=== PATIENT | female | born 1990 | race Hispanic/Latino ===

== ENCOUNTER 2017-02-19 16:37 | Emergency (ER) | payer OTHER ==
[2017-02-19 16:54] VITALS: RESP 16; TEMP 99; O2SAT 100
--- NOTE | 2017-02-19 17:23 | ED PDOC ---
HPI: Female Pain Time Seen by Provider: 02/19/17 17:08 Chief Complaint (Nursing): Female Genitourinary Chief Complaint (Provider): Female Genitourinary History Per: Patient History/Exam Limitations: no limitations Onset/Duration Of Symptoms: Hrs (earlier today) Severity: Moderate Associated Symptoms: Nausea. denies: Vomiting, Diarrhea, Urinary Symptoms Additional Complaint(s): 26 year old female 14 weeks presents to the ED with complaints of vaginal bleeding that started earlier today, with some clots. She has an intrauterine confirmed by an ultrasound at 13x weeks. She reports having nausea throughout this , but denies having any abdominal pain, diarrhea, and dysuria. She denies other vaginal discharge. PMD: Sruthi Carty MD Abnormal Vaginal Bleeding: Yes Past Medical History Reviewed: Historical Data, Nursing Documentation, Vital Signs Vital Signs: Last Vital Signs Temp 99.0 F 02/19/17 16:49 Pulse 88 02/19/17 16:49 Resp 16 02/19/17 16:49 BP 139/84 02/19/17 16:49 Pulse Ox 100 02/19/17 16:49 - Medical History PMH: No Chronic Diseases - Family History Family History: States: No Known Family Hx - Allergies Allergies/Adverse Reactions: Allergies Allergy/AdvReac Type Severity Reaction Status Date / Time No Known Allergies Allergy Verified 02/19/17 16:49 Review of Systems ROS Statement: Except As Marked, All Systems Reviewed And Found Negative Constitutional: Negative for: Fever, Chills Cardiovascular: Negative for: Chest Pain, Paroxysmal Noc. Dyspnea, Edema, Light Headedness Respiratory: Negative for: Cough, SOB with Exertion Gastrointestinal: Positive for: Nausea, Vomiting. Negative for: Abdominal Pain , Diarrhea, Constipation Genitourinary Female: Positive for: Vaginal Bleeding. Negative for: Dysuria, Vaginal Discharge (other than the bledding) Skin: Negative for: Rash Neurological: Negative for: Weakness Physical Exam - Reviewed Nursing Documentation Reviewed: Yes Vital Signs Reviewed: Yes - Physical Exam Appears: Positive for: Well, Non-toxic, No Acute Distress Head Exam: Positive for: ATRAUMATIC, NORMOCEPHALIC Skin: Positive for: Normal Color, Warm, Dry Cardiovascular/Chest: Positive for: Regular Rate, Rhythm Respiratory: Positive for: Normal Breath Sounds. Negative for: Respiratory Distress Gastrointestinal/Abdominal: Positive for: Normal Exam, Soft. Negative for: Tenderness, Mass, Guarding, Rebound Back: Negative for: L CVA Tenderness, R CVA Tenderness Extremity: Positive for: Normal ROM Neurologic/Psych: Positive for: Alert, Oriented (3x) - Laboratory Results Result Diagrams: 02/19/17 18:15 02/19/17 18:15 - ECG O2 Sat by Pulse Oximetry: 100 (RA) Pulse Ox Interpretation: Normal Medical Decision Making Medical Decision Makin:08 Initial impression: 26 year old female 14 weeks with abnormal vaginal bleeding. Initial plan: * US transvaginal * type and screen * CMP * CBC * urinalysis * reevaluation UA negative for nitates and leukocytes but shows large blood. 19:00 Will sign out to Dr. Bazan to follow-up labs and ultrasound Scribe Attestation: Documented by Alison Rabago, acting as a scribe for Mellisa Gross MD. Provider Scribe Attestation: All medical record entries made by the Scribe were at my direction and personally dictated by me. I have reviewed the chart and agree that the record accurately reflects my personal performance of the history, physical exam, medical decision making, and the department course for this patient. I have also personally directed, reviewed, and agree with the discharge instructions and disposition. Disposition - Clinical Impression Clinical Impression: Vaginal bleeding in - Disposition Disposition Time: 19:00 Condition: FAIR
[2017-02-19 18:29] LABS: BASO % 0.4 % (0.0-2.0); EOS # 0.1 K/uL (0.0-0.7); EOS % 0.6 % (0.0-4.0); HEMATOCRIT 36.2 % (34.0-47.0); LYMPH # 1.7 K/uL (1.0-4.3); LYMPH % 16.8 % (20.0-40.0); MEAN CELL VOLUME 93.6 fl (81.0-99.0); MEAN CORPUSCULAR HEMOGLOBIN 31.3 pg (27.0-31.0); MEAN CORPUSCULAR HGB CONC 33.5 g/dL (33.0-37.0); MEAN PLATELET VOLUME 8.6 fl (7.2-11.7); MONO # 0.8 K/uL (0.0-0.8); MONO % 7.3 % (0.0-10.0); NEUT # 7.7 K/uL (1.8-7.0); NEUT % 74.9 % (50.0-75.0); RED CELL DISTRIBUTION WIDTH 12.7 % (11.5-14.5); WHITE BLOOD COUNT 10.3 K/uL (4.8-10.8)
[2017-02-19 18:38] LABS: RBC URINE 818 /hpf (0-3); URINE BACTERIA OCC (<OCC); URINE BILIRUBIN NEGATIVE (NEGATIVE); URINE BLOOD LARGE (NEGATIVE); URINE COLOR YELLOW (YELLOW); URINE GLUCOSE (UA) NEG (Normal); URINE KETONE NEGATIVE (NEGATIVE); URINE LEUKOCYTE ESTERASE NEG Leu/uL (Negative); URINE PROTEIN 100 mg/dL (NEGATIVE); URINE UROBILINOGEN 0.2-1.0 mg/dL (0.2-1.0); WBC URINE 19 /hpf (0-5)
[2017-02-19 18:46] LABS: ALB/GLOB RATIO 1.5 (1.0-2.1); ALKALINE PHOSPHATASE 52 U/L (38-126); ALT/SGPT 26 U/L (9-52); AST/SGOT 26 U/L (14-36); BILIRUBIN,TOTAL 0.2 mg/dl (0.2-1.3); BLOOD UREA NITROGEN 10 mg/dl (7-17); CALCIUM 9.2 mg/dL (8.4-10.2); CARBON DIOXIDE 22 mmol/L (22-30); CHLORIDE 105 mmol/L (98-107); GFR AFRICAN-AMERICAN > 60; GLUCOSE,RANDOM 69 mg/dL (65-105); POTASSIUM 4.3 MMOL/L (3.6-5.0); SODIUM 137 mmol/l (132-148); TOTAL PROTEIN 6.8 G/DL (6.3-8.2)
--- NOTE | 2017-02-19 20:41 | US ---
EXAM: US First Trimester, Transabdominal CLINICAL HISTORY: 26 years old, female; Signs and symptoms; Lmp or gestational age (in weeks): 11/14/16; Antepartum complications; Hemorrhage; ; Additional info: Vaginal bleeding, 14 weeks TECHNIQUE: Real-time transabdominal obstetrical ultrasound of the maternal pelvis and a first trimester with image documentation. EXAM DATE/TIME: 02/19/2017 5:20 PM COMPARISON: No relevant prior studies available. FINDINGS: Uterus: Single intrauterine gestation identified. pole is seen. heart motion visualized, at 169 beats per minute. Calculated sonographic gestational age is 13 weeks, 6 days. Estimated delivery date is 08/21/2017. Early placenta appears anterior in location. No evidence of placenta previa. Note that the anatomy and amniotic fluid volume cannot be determined at this early gestational age. Cervix appears long and closed. Right ovary: Could not be visualized. Left ovary: Could not be visualized. Cul de sac: No free fluid. IMPRESSION: 13 week, 6 day intrauterine with heart motion. No acute abnormality identified. Ovaries could not be visualized. See above for remaining findings.
--- NOTE | 2017-02-19 20:49 | ED PDOC ---
- Laboratory Results Result Diagrams: 02/19/17 18:15 02/19/17 18:15 - ECG O2 Sat by Pulse Oximetry: 100 (RA) Pulse Ox Interpretation: Normal Medical Decision Making Medical Decision Making: PT. signed out to me by Dr. Gross. 830PM IMPRESSION: 1. Right L1 transverse process fracture, age-indeterminate. Clinical correlation recommended. 2. Moderate abdominopelvic ascites. 3. Tubular structure originating from the cecum is suspicious for appendix and measures up to 1 cm suggestive of appendicitis versus less likely ileum. No definite evidence of perforation or adjacent abscess. Diffuse small bowel dilatation with air-fluid levels is noted with stool observed within the colon. Findings are suggestive of ileus versus partial small bowel obstruction secondary to appendicitis. Clinical correlation recommended. PT. informed of results, encouraged pelvic rest (no sex, tampons, etc.) and to f /u w/ OB in 1-2 days, return precautions given- worsening bleeding, cramping, fevers, or other concerning symptoms. Disposition - Clinical Impression Clinical Impression: Vaginal bleeding in - POA Present On Arrival: None - Disposition [facility] Disposition: Routine/Home Disposition Time: 20:48 Condition: FAIR Instructions: Threatened Miscarriage (ED)
[2017-02-19 21:07] VITALS: BP 119/75; PULSE 75
== END 2017-02-19 21:07 | disposition home or self-care (01) ==
LOC: H.ER 16:37
DX: O20.0 Threatened abortion (principal); O46.90 Antepartum hemorrhage, unspecified, unspecified trimester; Z3A.14 14 weeks gestation of pregnancy; R18.8 Other ascites

== ENCOUNTER 2017-02-21 10:56 | Emergency (ER) | payer OTHER ==
[2017-02-21 11:14] VITALS: RESP 18; O2SAT 99
[2017-02-21] MEDS ORDERED: Lactated Ringer's 1,000 ML IV SCH (11:45)
--- NOTE | 2017-02-21 11:55 | ED PDOC ---
HPI: General Adult Time Seen by Provider: 02/21/17 11:06 Chief Complaint (Nursing): Female Genitourinary History Per: Patient Additional Complaint(s): Pt. states for the past 4 days she's had LLQ pelvic pain and vaginal bleeding. She was initially seen in [facility] ED at the onset of the bleeding and was subsequently discharged with normal findings. Pt. is currently under the care of ABDIRAHMAN Guardado, next appointment is on Thursday. Further states that she's had previous US for this already which confirmed IUP. Reports no previous pregnancies. Also states since Thursday bleeding has worsened. She has been using 4 fully soaked pads per day. Pt. has hx of anemia but no previous transfusions. Denies fever, dysuria, hematuria, previous ectopic pregnancies, weakness, abdominal pain. Past Medical History Reviewed: Historical Data, Nursing Documentation, Vital Signs Vital Signs: Last Vital Signs Temp 99.5 F 02/21/17 15:50 Pulse 75 02/21/17 15:50 Resp 18 02/21/17 15:50 BP 116/61 02/21/17 15:50 Pulse Ox 99 02/21/17 16:50 - Family History Family History: States: No Known Family Hx - Allergies Allergies/Adverse Reactions: Allergies Allergy/AdvReac Type Severity Reaction Status Date / Time No Known Allergies Allergy Verified 02/21/17 11:13 Review of Systems ROS Statement: Except As Marked, All Systems Reviewed And Found Negative Genitourinary Female: Positive for: Vaginal Bleeding, Pelvic Pain Physical Exam - Physical Exam Appears: Positive for: Well, Non-toxic, No Acute Distress Skin: Positive for: Normal Color, Warm. Negative for: Rash Eye Exam: Positive for: EOMI, Normal appearance, PERRL Gastrointestinal/Abdominal: Positive for: Normal Exam, Soft, Other (no pelvic tenderness). Negative for: Tenderness Back: Positive for: Normal Inspection. Negative for: L CVA Tenderness, R CVA Tenderness Extremity: Positive for: Normal ROM Neurologic/Psych: Positive for: Alert, Oriented - Laboratory Results Result Diagrams: 02/21/17 12:00 02/21/17 12:00 - ECG O2 Sat by Pulse Oximetry: 99 - Progress ED Course And Treament: Labs ordered .TVUS ordered. IV LR bolus ordered. TVUS: 14 week 2 days single live intrauterine fetus in variable presentation, with an ANGELA of 08/20/2017. Anterior placenta without previa, low lying placenta, or abruption. Qualitatively normal amniotic fluid volume. No findings to suggest ovarian torsion. Case d/w Dr. Mcihael who evaluated pt. in ED and agrees with care and states pt. can f/u with Dr. Carty as previously scheduled. Disposition - Clinical Impression Clinical Impression: Threatened miscarriage - Patient ED Disposition Is Patient to be Admitted: No - Disposition Referrals: Sruthi Carty MD [Staff Provider] - Disposition: Routine/Home Disposition Time: 16:49 Condition: STABLE Additional Instructions: Follow up with Dr. Carty on Thursday as previously scheduled without fail. Instructions: Threatened Miscarriage (ED)
[2017-02-21 12:33] LABS: BASO % 0.2 % (0.0-2.0); EOS % 0.3 % (0.0-4.0); HEMATOCRIT 38.8 % (34.0-47.0); LYMPH # 1.3 K/uL (1.0-4.3); LYMPH % 12.5 % (20.0-40.0); MEAN CELL VOLUME 92.3 fl (81.0-99.0); MEAN CORPUSCULAR HEMOGLOBIN 31.5 pg (27.0-31.0); MEAN CORPUSCULAR HGB CONC 34.1 g/dL (33.0-37.0); MEAN PLATELET VOLUME 8.6 fl (7.2-11.7); MONO # 0.6 K/uL (0.0-0.8); MONO % 5.4 % (0.0-10.0); NEUT # 8.7 K/uL (1.8-7.0); NEUT % 81.6 % (50.0-75.0); RED CELL DISTRIBUTION WIDTH 12.8 % (11.5-14.5); WHITE BLOOD COUNT 10.6 K/uL (4.8-10.8)
[2017-02-21 12:41] LABS: ALB/GLOB RATIO 1.4 (1.0-2.1); ALKALINE PHOSPHATASE 57 U/L (38-126); ALT/SGPT 26 U/L (9-52); AST/SGOT 27 U/L (14-36); BILIRUBIN,TOTAL 0.2 mg/dl (0.2-1.3); BLOOD UREA NITROGEN 7 mg/dl (7-17); CALCIUM 9.6 mg/dL (8.4-10.2); CARBON DIOXIDE 22 mmol/L (22-30); CHLORIDE 106 mmol/L (98-107); GFR AFRICAN-AMERICAN > 60; GLUCOSE,RANDOM 75 mg/dL (65-105); POTASSIUM 4.2 MMOL/L (3.6-5.0); SODIUM 137 mmol/l (132-148)
[2017-02-21 13:07] LABS: URINE COLOR YELLOW (YELLOW)
[2017-02-21 13:08] LABS: URINE BILIRUBIN NEGATIVE (NEGATIVE); URINE BLOOD LARGE (NEGATIVE); URINE GLUCOSE (UA) NEGATIVE (Normal); URINE KETONE NEGATIVE (NEGATIVE); URINE PROTEIN NEGATIVE (NEGATIVE); URINE UROBILINOGEN 0.2 mg/dL (0.2-1.0)
[2017-02-21 13:09] LABS: RBC URINE 13 /hpf (0-3); URINE BACTERIA FEW (<OCC); URINE LEUKOCYTE ESTERASE NEGATIVE Leu/uL (Negative); WBC URINE 8 /hpf (0-5)
[2017-02-21 13:19] LABS: PARTIAL THROMBOPLASTIN TIME 25.6 SECONDS (23.3-32.5)
[2017-02-21 15:51] VITALS: BP 116/61; PULSE 75; TEMP 99.5
--- NOTE | 2017-02-21 18:04 | CP.PCM.CON ---
History of Present Illness - History of Present Illness History of Present Illness: 26yo LMP 11/14 at 14.1wks by LMP and 13wk us presents with c/o continued light bleeding since prior presentation 2days ago. She states when she awakened today she had an episode of heavy bleeding which has since been saddle lining stitcher in flowShe has had intermittent cramping and denies pain or cramps at present. US today shows: +FHR- 171, Cerv Length: 4.2cm, placenta without evidence of abruption, previa or low lying. She has used 1 pad since the bleeding this morning which has scant amount of brown blood. Review of Systems - Constitutional Constitutional: Chills, Excessive Sweating, Malaise - Cardiovascular Cardiovascular: Chest Pain - Respiratory Respiratory: Dyspnea on Exertion, Pain on Inspiration - Gastrointestinal Gastrointestinal: absent: Abdominal Pain - Genitourinary Genitourinary: absent: Change in Urinary Stream Past Patient History - Past Social History Smoking Status: Never Smoked - PSYCHIATRIC Hx Substance Use: No Meds Allergies/Adverse Reactions: Allergies Allergy/AdvReac Type Severity Reaction Status Date / Time No Known Allergies Allergy Verified 02/21/17 11:13 Physical Exam - Constitutional Appears: Well - Head Exam Head Exam: ATRAUMATIC, NORMOCEPHALIC - Respiratory Exam Respiratory Exam: NORMAL BREATHING PATTERN - Cardiovascular Exam Cardiovascular Exam: REGULAR RHYTHM - GI/Abdominal Exam GI & Abdominal Exam: Normal Bowel Sounds, Soft. absent: Diminished Bowel Sounds , Distended, Firm, Guarding, Rebound, Rigid, Tenderness - Exam Speculum exam: absent: Laceration (+dark blood in vaginal vault. scant dark blood per cervical os; cvx: cl/thick), NORMAL SPECULUM EXAM Results - Vital Signs Recent Vital Signs: Last Vital Signs Temp 99.5 F 02/21/17 15:50 Pulse 75 02/21/17 15:50 Resp 18 02/21/17 15:50 BP 116/61 02/21/17 15:50 Pulse Ox 99 02/21/17 16:58 - Labs Result Diagrams: 02/21/17 12:00 02/21/17 12:00 Labs: Laboratory Results - last 24 hr 02/21/17 02/21/17 02/21/17 12:00 12:00 12:00 WBC 10.6 RBC 4.21 Hgb 13.2 Hct 38.8 MCV 92.3 MCH 31.5 H MCHC 34.1 RDW 12.8 Plt Count 213 MPV 8.6 Neut % (Auto) 81.6 H Lymph % (Auto) 12.5 L Hudson % (Auto) 5.4 Eos % (Auto) 0.3 Baso % (Auto) 0.2 Neut # 8.7 H Lymph # 1.3 Hudson # 0.6 Eos # 0.0 Baso # 0.0 PT 9.4 L INR 0.90 L APTT 25.6 Sodium 137 Potassium 4.2 Chloride 106 Carbon Dioxide 22 Anion Gap 13 BUN 7 Creatinine 0.5 L Est GFR ( Amer) > 60 Est GFR (Non-Af Amer) > 60 Random Glucose 75 Calcium 9.6 Total Bilirubin 0.2 AST 27 ALT 26 Alkaline Phosphatase 57 Total Protein 7.0 Albumin 4.1 Globulin 2.9 Albumin/Globulin Ratio 1.4 Beta HCG, Quant 592494.00 Urine Color Urine Clarity Urine pH Ur Specific [place] Urine Protein Urine Glucose (UA) Urine Ketones Urine Blood Urine Nitrate Urine Bilirubin Urine Urobilinogen Ur Leukocyte Esterase Urine RBC (Auto) Urine Microscopic WBC Ur Squamous Epith Cells Amorphous Sediment Urine Bacteria Blood Type Antibody Screen BBK History Checked 02/21/17 02/21/17 12:00 12:00 WBC RBC Hgb Hct MCV MCH MCHC RDW Plt Count MPV Neut % (Auto) Lymph % (Auto) Hudson % (Auto) Eos % (Auto) Baso % (Auto) Neut # Lymph # Hudson # Eos # Baso # PT INR APTT Sodium Potassium Chloride Carbon Dioxide Anion Gap BUN Creatinine Est GFR ( Amer) Est GFR (Non-Af Amer) Random Glucose Calcium Total Bilirubin AST ALT Alkaline Phosphatase Total Protein Albumin Globulin Albumin/Globulin Ratio Beta HCG, Quant Urine Color Yellow Urine Clarity Cloudy Urine pH 7.0 Ur Specific [place] 1.017 Urine Protein Negative Urine Glucose (UA) Negative Urine Ketones Negative Urine Blood Large Urine Nitrate Negative Urine Bilirubin Negative Urine Urobilinogen 0.2 Ur Leukocyte Esterase Negative Urine RBC (Auto) 13 H Urine Microscopic WBC 8 H Ur Squamous Epith Cells 34 H Amorphous Sediment Moderate H Urine Bacteria Few H Blood Type O POSITIVE Antibody Screen Negative BBK History Checked Patient has bt Assessment & Plan - Assessment and Plan (Free Text) Assessment: I: Threatened with nl f/u P: f/u with dr smith as scheduled this wk in 4days return to Ed with onset of heavy bleeding or abd pain. pelvic rest and bed rest.
--- NOTE | 2017-02-23 08:07 | US ---
Pelvic ultrasound History: . Vaginal bleeding and left lower quadrant pelvic pain. Comparison: Comparison is made to prior ultrasound from 02/19/2017. Technique: Transabdominal ultrasonography images of the pelvis. Findings: Single intrauterine identified. The placenta is anterior. The placenta is not seen to be overlying the area cervical os. The presentation appears to be variable. There is motion identified according to the technologist note. cardiac motion identified with heart rate: 171 beats per minute. Biparietal diameter: 2.6 centimeter. Abdominal circumference: 7.9 centimeter. Head circumference: 9.6 centimeter. Femur length: 1.4 centimeter. Mean ultrasound age: 14 weeks 2 days. Both ovaries appear unremarkable. (Please note that this is not complete anatomical survey). Cervix measures approximately 4.26 centimeters. Minimal fluid seen within the cervix. Impression: Single live intrauterine gestational sac identified. Mean ultrasound age: 14 weeks 2 days. Other findings as above. Please note that this report is in general agreement with the preliminary report provided by [facility].
== END 2017-02-21 17:08 | disposition home or self-care (01) ==
LOC: H.ER 10:56
DX: O20.0 Threatened abortion (principal); O20.9 Hemorrhage in early pregnancy, unspecified; Z3A.14 14 weeks gestation of pregnancy

== ENCOUNTER 2017-06-16 11:52 | Emergency (ER) | payer BC, OTHER ==
[2017-06-16 12:15] VITALS: BMI 24.5
[2017-06-16 13:03] LABS: BASO % 0.4 % (0.0-2.0); EOS % 0.5 % (0.0-4.0); HEMATOCRIT 29.9 % (34.0-47.0); LYMPH # 1.4 K/uL (1.0-4.3); LYMPH % 18.6 % (20.0-40.0); MEAN CELL VOLUME 90.8 fl (81.0-99.0); MEAN CORPUSCULAR HEMOGLOBIN 30.6 pg (27.0-31.0); MEAN CORPUSCULAR HGB CONC 33.8 g/dL (33.0-37.0); MEAN PLATELET VOLUME 8.4 fl (7.2-11.7); MONO # 0.7 K/uL (0.0-0.8); MONO % 8.8 % (0.0-10.0); NEUT # 5.3 K/uL (1.8-7.0); NEUT % 71.7 % (50.0-75.0); RED CELL DISTRIBUTION WIDTH 12.2 % (11.5-14.5); WHITE BLOOD COUNT 7.4 K/uL (4.8-10.8)
[2017-06-16 13:15] LABS: ALB/GLOB RATIO 1.2 (1.0-2.1); ALKALINE PHOSPHATASE 149 U/L (38-126); ALT/SGPT 56 U/L (9-52); AST/SGOT 37 U/L (14-36); BILIRUBIN,TOTAL 0.3 mg/dl (0.2-1.3); BLOOD UREA NITROGEN 12 mg/dl (7-17); CALCIUM 9.1 mg/dL (8.4-10.2); CARBON DIOXIDE 22 mmol/L (22-30); CHLORIDE 106 mmol/L (98-107); GFR AFRICAN-AMERICAN > 60; GLUCOSE,RANDOM 69 mg/dL (65-105); POTASSIUM 4.3 MMOL/L (3.6-5.0); SODIUM 136 mmol/l (132-148); TOTAL PROTEIN 6.1 G/DL (6.3-8.2); URIC ACID 5.1 mg/Dl (2.2-7.5)
[2017-06-16 14:06] LABS: RBC URINE 15 /hpf (0-3); URINE BILIRUBIN NEGATIVE (NEGATIVE); URINE BLOOD SMALL (NEGATIVE); URINE COLOR YELLOW (YELLOW); URINE GLUCOSE (UA) NEG (Normal); URINE KETONE NEGATIVE (NEGATIVE); URINE LEUKOCYTE ESTERASE NEG Leu/uL (Negative); URINE PROTEIN 30 mg/dL (NEGATIVE); URINE UROBILINOGEN 0.2-1.0 mg/dL (0.2-1.0); WBC URINE 3 /hpf (0-5)
[2017-06-16 20:59] VITALS: BP 124/74; PULSE 75; RESP 18; TEMP 98.3; O2SAT 99
--- NOTE | 2017-06-16 21:02 | OBHP ---
Datetime: 06/16/2017 12:00 IP Adm Impression: , intrauterine IP Admit Plan: Observation/Evaluation Admit Comment, IP Provider: CC: elevated blood pressure HPI: 27 yo at 30.4 GA by lmp + FM; -: VB, CTX, ROM Last US: 06/14/2017 Last visit: 1 week; Jo shares of elevated BP: yesterday: 139/89; This AM: 155/99 and reported findings to Dr. Lenny simms's office; She was instructed to present to the SEE. + for slight nausea; She denies MONTES, Blurr ed vision, epigastric pain, vomiting, Chest pain, shortness of breath. She shares of experiencing vag baljeet bleed at 14 weeks of this ; 04/20/2017: Circumvallate placenta; small chorionic plate. past obhx: n/a past gyne: Std: denies; Pap 12/2016: negative pmhx: 06/2016: anemia secondary to exercise induce rhabdomyolysis Tx iron; 2013: vagovagal episod e; 2008: nephrolithiasis; 1 month: R hand numbness; Acid Reflux past surgical: none soc hx: Denies smoking, illicit drugs or alcohol use during ; History of social alcohol meds: Nexium Allergies: NKDA Vitals: 137/79 83 100% PE: General: pleasant, in no acute distress HEENT: normocephalic, PERRLA; AAOx3 Heart: no murmurs, regular rate and rhythm, S1, S2 normal. Lungs: clear to auscultation bilaterally, no wheezing Abdomen: gravid; nontender CVA: negative Lower extremities: negative for pitting edema Monitor: Moderate variability; Accel: 15x15; No Decels; FHR: 150 Assessment: 27 yo IUP at 30.4 wks with no obstetric history observed for elevated blood pressure Plan: PIV labs: CBC, CMP, Uric acid, LDH, LDH; Pt has already begun 24 hour urine collection Pt also managing blood glucose via fingerstick due to failed 3 hour blood glucose challenge. Preeclampsia workup WNL, all copies faxed over to [employer] [facility] Patient given ER precautions Stable to DC home d/w Dr Karo guillen, pgy1 OB Hospitalist note: This pt was seen and examined by me. Agree with above note. MAHNDO Pelvic Type - PN: Adequate Extremities - PN: Normal Abdomen - PN: Normal Back - PN: Normal Breast - PN: Normal Lungs - PN: Normal Heart - PN: Normal Thyroid - PN: Not Done Neurologic - PN: Normal HEENT - PN: Normal General - PN: Normal FHR - Baseline A Provider: 150 Comments, ACOG Physical Exam: ROS: General: no weakness; no fatigue HEENT: no MONTES; no visual dist CV: no palpitations; no no CP GI: no N/V no diarhea : no F/U/D MS: No joint pain IP Hx Assessment: The History has been Reviewed and is Current Vital Signs Provider: Reviewed; Within Normal Limits IP Chief Complaint: Signs/Symptoms Gestational HTN NICHD Variability Prov Fetus A: Moderate 6-25bpm NICHD Accel Fetus A IP Provider: 15X15 FHR Category Provider Fetus A: Category I NICHD Decel Fetus A IP Provider: None Genitourinary Exam: Not Done DTRs - PN: Not Done
--- NOTE | 2017-06-16 21:03 | OBDCSUM ---
Datetime: 06/16/2017 13:33 Discharged to, Provider: Home Follow up at, Provider: Dr Hansen Disch Instr Activity: Normal activity Disch Instr Diet: Regular Discharge Time: 06/16/2017 13:37 Follow up in weeks, Provider: at 10:00 am Disch Referrals: None Disch Activity Restrictions: No sexual activity Discharge Comment, Provider: -Patient to commence 24 hr urine tomorrow AM -all results of PIH workup copied, faxed to Dr. Hansen' office and provided to patient - ER precautions discussed - follow up with Dr Hansen on - d/w Dr Karo Bonilla MD OB Hospitalist note: This pt was seen and examined by me. Agree with above note. MAHNDO Discharge Diagnosis Prov Other: elevated BP
== END 2017-06-16 13:40 | disposition home or self-care (01) ==
LOC: H.EROB2 11:52 → H.EROB 11:54 → H.EROB2 13:40
DX: O13.3 Gestational [pregnancy-induced] hypertension without significant proteinuria, third trimester (principal); Z3A.30 30 weeks gestation of pregnancy

== ENCOUNTER 2017-07-06 18:45 | Inpatient (IN) | payer BC ==
[2017-07-06 19:38] VITALS: BMI 25.7
[2017-07-06] MEDS ORDERED: Magnesium Sulfate 4 gm/100 ml 4 GM/100 ML BAG IV ONE (19:47)
[2017-07-06] MEDS ORDERED: Magnesium Sul 40GM/1L SW 40 GM/1,000 ML ML IV ONE ×2 (19:47→20:30)
[2017-07-06] MEDS ORDERED: Betamethasone Soluspan 30 mg/5mL Inj Susp IM ONE (20:00)
[2017-07-06] MEDS: Lactated Ringer's 1,000 ML IV SCH (21:00)
[2017-07-06 21:09] LABS: ALKALINE PHOSPHATASE 163 U/L (38-126); ALT/SGPT 36 U/L (9-52); AST/SGOT 31 U/L (14-36); BILIRUBIN,TOTAL < 0.1 mg/dl (0.2-1.3); BLOOD UREA NITROGEN 13 mg/dl (7-17); CALCIUM 7.6 mg/dL (8.4-10.2); CARBON DIOXIDE 21 mmol/L (22-30); CHLORIDE 113 mmol/L (98-107); GFR AFRICAN-AMERICAN > 60; GLUCOSE,RANDOM 62 mg/dL (65-105); MAGNESIUM 1.8 MG/DL (1.6-2.3); POTASSIUM 3.5 MMOL/L (3.6-5.0); SODIUM 137 mmol/l (132-148)
[2017-07-06 21:41] LABS: RBC URINE 2 /hpf (0-3); URINE BACTERIA RARE (<OCC); URINE BILIRUBIN NEGATIVE (NEGATIVE); URINE BLOOD NEGATIVE (NEGATIVE); URINE COLOR YELLOW (YELLOW); URINE GLUCOSE (UA) NEG (Normal); URINE KETONE NEGATIVE (NEGATIVE); URINE LEUKOCYTE ESTERASE NEG Leu/uL (Negative); URINE PROTEIN >=500 mg/dL (NEGATIVE); URINE UROBILINOGEN 0.2-1.0 mg/dL (0.2-1.0); WBC URINE 5 /hpf (0-5)
--- NOTE | 2017-07-06 21:44 | OBADHP ---
Datetime: 07/06/2017 21:25 Admit Comment, IP Provider: Patient is a @ 33.3 wks admitted for pre-eclamptic evaluation. Binta ent has a history of circumvallante placenta, IUGR. Patient at 31 wks was found in office to have BP [id number], was asymptomatic, had pre-eclamptic labs including a 24 hr urine which was negative. Binta ent in office today had BP of 150/100, denies MONTES, blurred vision, N/V, was sent to [facility] evalu ation. Initial BPs were 160s-170s/100s, patient continues to denies MONTES, blurred vision, N/V. No vag b leeding, no leaking, +FM, occasional contractions. Growth on 07/01 showed EFW= 1600gm, 17%, vertex. VE=deferred HHB=446 Cat-I A/P 1. Plan of care discussed with GABE and Dr. Hansen. Will admit patient for repreat Pre-eclamptic workup, Will draw CBC, CMP, LDH. Patient initially denies any severe signs, because BP initially is over 160/100 will start MgSO4 for seizure prophylaxis. 2. Labetalol 200mg PO initially given immediately and then Q8hrs and BPs taken every 10-15 mins. I f BP not under 140s/90s, will consider giving IV Labetalol 3. Will collect 24 urine protein and strict I's/Os. 4. CEFM and TOCO. Re-evalaute as needed Pelvic Type - PN: Adequate Extremities - PN: Normal Abdomen - PN: Normal Back - PN: Normal Breast - PN: Normal Lungs - PN: Normal Heart - PN: Normal Thyroid - PN: Normal Neurologic - PN: Normal HEENT - PN: Normal General - PN: Normal FHR - Baseline A Provider: 140 Contraction Comments Provider: occasional Vital Signs Provider: Reviewed IP Chief Complaint: Signs/Symptoms Gestational HTN NICHD Variability Prov Fetus A: Moderate 6-25bpm NICHD Accel Fetus A IP Provider: [id number] NICHD Decel Fetus A IP Provider: None Genitourinary Exam: Normal DTRs - PN: Normal EGA AdmitDate IP: 33.3 IP Admit Plan: Admit to unit; Observation/Evaluation Datetime: 06/16/2017 12:00 Comments, ACOG Physical Exam: ROS: General: no weakness; no fatigue HEENT: no MONTES; no visual dist CV: no palpitations; no no CP GI: no N/V no diarhea : no F/U/D MS: No joint pain IP Hx Assessment: The History has been Reviewed and is Current FHR Category Provider Fetus A: Category I IP Adm Impression: , intrauterine
[2017-07-07 08:05] LABS: LYMPH # 0.9 K/uL (1.0-4.3); LYMPH % 9.5 % (20.0-40.0); MEAN CELL VOLUME 89.3 fl (81.0-99.0); MEAN CORPUSCULAR HEMOGLOBIN 30.3 pg (27.0-31.0); MEAN PLATELET VOLUME 8.9 fl (7.2-11.7); MONO # 0.1 K/uL (0.0-0.8); MONO % 1.3 % (0.0-10.0); NEUT # 8.9 K/uL (1.8-7.0); NEUT % 89.2 % (50.0-75.0); NRBC % 0.1 % (0.0-0.0); PLATELET COUNT 186 K/uL (130-400); RED CELL DISTRIBUTION WIDTH 12.7 % (11.5-14.5)
[2017-07-07] MEDS: Lactated Ringer's 1,000 ML IV SCH ×2 (08:42→16:00)
[2017-07-07] MEDS ORDERED: Magnesium Sul 40GM/1L SW 40 GM/1,000 ML ML IV ONE (09:06)
[2017-07-07 09:35] LABS: NEUTROPHIL 89 % (42-75); TOTAL CELLS COUNTED 100
[2017-07-07] MEDS ORDERED: Betamethasone Soluspan 30 mg/5mL Inj Susp IM ONE (20:45)
--- NOTE | 2017-07-07 23:06 | OBPN ---
Datetime: 07/07/2017 23:04 IP Progress Note Comment: Patient's 24-hour urine results reported approximately 5800 mg protein in 24-hour urine. Patient currently with stable blood pressures and without complaints. Discussed plan w dieter BERNAL. Plan to keep patient for observation and we will recheck labs and recheck 24-hour urine in 2 days. Both maternal well-being and well-being reassuring at this time. I discussed plan with t rupal patient and all patient questions answered. Datetime: 07/06/2017 21:25 Contraction Comments Provider: occasional FHR - Baseline A Provider: 140 Vital Signs Provider: Reviewed NICHD Accel Fetus A IP Provider: [id number] NICHD Variability Prov Fetus A: Moderate 6-25bpm NICHD Decel Fetus A IP Provider: None Datetime: 06/16/2017 12:00 FHR Category Provider Fetus A: Category I
[2017-07-08 08:38] LABS: CREATININE, 24 HOUR URINE 1.43 g/24 h (0.63-2.50); CREATININE, URINE 1.59 g/L
--- NOTE | 2017-07-08 11:21 | US ---
PROCEDURE: biophysical profile HISTORY: 33+4 wks with preeclampsis COMPARISON: 02/21/2017 TECHNIQUE: Standard protocol for this study/examination. FINDINGS: FINDINGS: Biophysical profile score 8/8 Based on the followin. breathing movements: 2/2 2. Gross body movement: 2/2 3. tone: 2/2 4. Qualitative amniotic fluid index: 2/2 Amniotic fluid index 15.9. Calculated cardiac rate 156 beats per minute Cephalic presentation. IMPRESSION: Biophysical profile score 8/8
--- NOTE | 2017-07-08 12:05 | OBPN ---
Datetime: 07/08/2017 11:41 IP Progress Impression Other: Pre-eclampsia IP Progress Plan: Continue present management Membranes, Provider: Intact FHR - Baseline A Provider: 120's IP Progress Note Comment: 27 yo G1 at 33+5 wks w/ pre-eclampsia, reports that she has nausea (throug hout ), denies MONTES, visual changes, abdominal pain, LOF, VB, reports FM. PE: BP 126/82, 143/93, 152/95, 150/89 Labetolol ordered to be given PRN , 200mg q 8 if BP persisting >150/100 Pt to have labs and 24 urine repeated tomorrow Will follow sx and BPs, BPP 8/8 today NICHD Accel Fetus A IP Provider: [id number] FHR Category Provider Fetus A: Category I NICHD Variability Prov Fetus A: Moderate 6-25bpm NICHD Decel Fetus A IP Provider: None; Variable
[2017-07-09 11:54] LABS: BASO % 0.1 % (0.0-2.0); HEMATOCRIT 26.3 % (34.0-47.0); LYMPH # 1.7 K/uL (1.0-4.3); LYMPH % 20.8 % (20.0-40.0); MEAN CELL VOLUME 89.2 fl (81.0-99.0); MEAN CORPUSCULAR HEMOGLOBIN 30.2 pg (27.0-31.0); MEAN CORPUSCULAR HGB CONC 33.9 g/dL (33.0-37.0); MEAN PLATELET VOLUME 8.6 fl (7.2-11.7); MONO # 0.9 K/uL (0.0-0.8); NEUT # 5.4 K/uL (1.8-7.0); NEUT % 68.1 % (50.0-75.0); NRBC % 0.2 % (0.0-0.0); RED CELL DISTRIBUTION WIDTH 12.7 % (11.5-14.5)
[2017-07-09 12:10] LABS: ALKALINE PHOSPHATASE 152 U/L (38-126); ALT/SGPT 31 U/L (9-52); AST/SGOT 27 U/L (14-36); BILIRUBIN,TOTAL 0.1 mg/dl (0.2-1.3); CALCIUM 7.6 mg/dL (8.4-10.2); CARBON DIOXIDE 23 mmol/L (22-30); CHLORIDE 108 mmol/L (98-107); GFR AFRICAN-AMERICAN > 60; GLUCOSE,RANDOM 87 mg/dL (65-105); POTASSIUM 4.4 MMOL/L (3.6-5.0); SODIUM 136 mmol/l (132-148); TOTAL PROTEIN 5.1 G/DL (6.3-8.2)
[2017-07-09 13:07] LABS: BLOOD UREA NITROGEN 21 mg/dl (7-17)
[2017-07-09] MEDS ORDERED: Enoxaparin 40 mg Syringe SC SCH (16:30)
[2017-07-09] MEDS ORDERED: Labetalol 5 mg/ml Inj 20ML IVP ONE (20:00)
[2017-07-10] MEDS ORDERED: Labetalol 5 mg/ml Inj 20ML IVP ONE (03:45)
--- NOTE | 2017-07-10 08:33 | OBPN ---
Datetime: 07/09/2017 08:26 IP Progress Impression: Gest. HTN/PreEclampsia/Eclampsia IP Progress Plan: Continue present management IP Progress Note Comment: s: Patient denies headaches blurred vision condition midepigastric or righ t upper quadrant pain. o: Lower extremity reflexes +3 out of 4 Positive nonpitting pedal edema Impression: Preeclampsia asymptomatic Status post betamethasone 2 34 week gestation Plan Repeat serological evaluation and 24-hour urine Addendum: Repeat low blood work within normal limits with the exception of elevated creatinine. Results disc ussed with Dr. aguirre bed was stated to delay 24-hour urine collection until Thursday stating that the to do it today would be too close to the prior 24-hour urine and would not add significant informati on. That can spit also stated elevated creatinine secondary to proteinuria. Recommended starting Love nox. Rx of Lovenox 40 was ordered. Vital Signs Provider: Reviewed NICHD Accel Fetus A IP Provider: 15X15 FHR Category Provider Fetus A: Category I
--- NOTE | 2017-07-10 08:52 | OBPN ---
Datetime: 07/09/2017 21:31 IP Progress Note Comment: Blood pressures further increased today. Subjective: Patient continues to deny headaches blurred vision spots in her vision right upper jovan drant pain midepigastric pain. Oh: Lower extremity posterior to 4, positive pitting pedal edema, no clonus Impression: Preeclampsia Further increase of blood pressures patient continues to remain asymptomatic Plan: DC Lovenox Patient discussed with Dr. Hernandez will continue to manage expectantly.
[2017-07-10] MEDS ORDERED: Labetalol 5 mg/ml Inj 20ML IVP STA (20:15)
[2017-07-10] MEDS ORDERED: Magnesium Sulfate 4 gm/100 ml 4 GM/100 ML BAG IVPB ONE (20:25)
[2017-07-10] MEDS ORDERED: Magnesium Sul 40GM/1L SW 40 GM/1,000 ML ML IV ONE ×2 (20:28→20:39)
[2017-07-11] MEDS: Lactated Ringer's 1,000 ML IV SCH (12:45)
[2017-07-11 15:36] LABS: BASO % 0.3 % (0.0-2.0); EOS # 0.1 K/uL (0.0-0.7); EOS % 0.6 % (0.0-4.0); HEMATOCRIT 28.1 % (34.0-47.0); LYMPH % 22.4 % (20.0-40.0); MEAN CELL VOLUME 90.9 fl (81.0-99.0); MEAN PLATELET VOLUME 9.3 fl (7.2-11.7); MONO # 0.7 K/uL (0.0-0.8); NEUT # 6.2 K/uL (1.8-7.0); NEUT % 68.7 % (50.0-75.0); NRBC % 0.1 % (0.0-0.0); RED CELL DISTRIBUTION WIDTH 12.8 % (11.5-14.5)
[2017-07-11 15:43] LABS: ALKALINE PHOSPHATASE 168 U/L (38-126); ALT/SGPT 24 U/L (9-52); AST/SGOT 27 U/L (14-36); BILIRUBIN,TOTAL 0.1 mg/dl (0.2-1.3); BLOOD UREA NITROGEN 19 mg/dl (7-17); CALCIUM 7.1 mg/dL (8.4-10.2); CARBON DIOXIDE 18 mmol/L (22-30); CHLORIDE 108 mmol/L (98-107); GFR AFRICAN-AMERICAN > 60; GLUCOSE,RANDOM 74 mg/dL (65-105); POTASSIUM 4.8 MMOL/L (3.6-5.0); SODIUM 133 mmol/l (132-148); TOTAL PROTEIN 5.1 G/DL (6.3-8.2); URIC ACID 6.3 mg/Dl (2.2-7.5)
--- NOTE | 2017-07-11 22:37 | OBPN ---
Datetime: 07/11/2017 09:30 IP Progress Note Comment: Patient comfortable at this time without complaints. Patient with episode of headaches and nausea consistent with her history of migraines. She reports that this has subsided. Patient denies any changes in vision or abdominal pain. Patient denies any contractions, vaginal ble eding, leakage of fluids. Patient reports good movement. Vital signs stable, afebrile Abdomen soft, nontender, nondistended, gravid, no fundal tenderness No deep Tenderness bilaterally Assessment: 34 weeks and 1 day gestational age, preeclampsia. Blood pressures were controlled at this time. Th e infant well-being reassuring at this time. Plan: Repeat 24-hour urine collection completed this evening Continue by mouth labetalol to control blood pressure Magnesium sulfate discontinued well-controlled blood pressures and length magnesium sulfate use Continuous monitoring at this time Plan discussed with patient and all patient questions answered.
[2017-07-12] MEDS ORDERED: Labetalol 5 mg/ml Inj 20ML IVP ONE (03:56)
[2017-07-12] MEDS ORDERED: Magnesium Sulfate 2 GM in Sodium Chloride 0.9% 100 ML IVPB ONE (04:03)
[2017-07-12] MEDS ORDERED: Magnesium Sul 40GM/1L SW 40 GM/1,000 ML ML IV ONE ×3 (04:04→19:00)
[2017-07-12] MEDS: Lactated Ringer's 1,000 ML IV SCH ×2 (04:16→18:36)
[2017-07-12] MEDS ORDERED: Labetalol 5 mg/ml Inj 20ML IVP STA ×2 (04:17→04:39)
--- NOTE | 2017-07-12 05:27 | OBPN ---
Datetime: 07/12/2017 05:20 IP Progress Note Comment: Pt with BPs 160s-170s/100-110. Pt given Labetalol 10mg slow IVP, no crockett e after 15 minutes. Pt given Labetalol 20mg slow IVP. BPs lowered to 140s/90s. MgSO4 started. FHT reassuring at this time. 24hr urine in lab and results pending. Continue close observation.
[2017-07-12] MEDS ORDERED: ceFAZolin 1 GM in Sodium Chloride 0.9% 100 ML IVPB ONE (07:05)
[2017-07-12] MEDS ORDERED: Oxytocin 30 units/LR 500ML 30 U/500 ML BAG IV ONE (07:07)
[2017-07-12 07:24] LABS: HEMATOCRIT 27.7 % (34.0-47.0); MEAN CELL VOLUME 89.6 fl (81.0-99.0); MEAN CORPUSCULAR HEMOGLOBIN 29.5 pg (27.0-31.0); WHITE BLOOD COUNT 8.9 K/uL (4.8-10.8)
--- NOTE | 2017-07-12 07:28 | OBPN ---
Datetime: 07/12/2017 07:24 IP Progress Impression: Gest. HTN/PreEclampsia/Eclampsia IP Informed Consent Obtain: Section Delivery; Risks, Benefits and Alternatives Discussed IP Progress Plan: Deliver- Section IP Progress Note Comment: Persistent blood pressures of 150s to 160s over 90s to 100s despite multip le doses of IV antihypertensives. Patient's 24-hour urine collection resulted reported greater than 1 4,000 mg protein. I called and discussed case with [facility]. MFM recommended delivery via . I dis cussed plan with patient and all patient questions answered. Patient consented for delivery . I discussed with patient the risks of surgery including risks of bleeding, infection, organ damage. Anesthesia notified. Neonatology notified.
[2017-07-12] MEDS ORDERED: Phenylephrine 10 mg/ml Inj ONE (07:44)
--- NOTE | 2017-07-12 09:13 | OBDS ---
DELIVERY PERSONNEL Delivery Doctor: Esdras Nieves MD Design Cell Engineer: Nhung Valencia RN MATERNAL INFORMATION Delivery Anesthesia: Spinal Medications in Delivery: pitocin Estimated Blood Loss (ml): 800 Placenta Cultured: No Provider Comments: Primary low flap transverse section via Pfannenstiel incision. Patient delivered viable infant male with Apgars of 8 and 9 at one and 5 minutes respectively. 4 l bs. 1 oz. Normal uterus, normal tubes and ovaries bilaterally Estimated blood loss 800 mL Fluids 1200 mL lactated Ringer's Urine output 200 mL of clear urine No Complications LABOR SUMMARY EDC: 08/21/2017 00:00 No. Babies in Womb: 1 LABOR INFORMATION Reason for Induction: Not Applicable Group B Beta Strep: Not Done Steroids Given: Full Course Reason Steroids Not Administered: Not Applicable STAGES OF LABOR Stage 3 hrs: 0 Stage 3 min: 0 CSECTION DELIVERY Primary Indication: Severe PIH, Unfavorable Cervix Labor: No Labor Elective: Nonelective CSection Incision: Lower Uterine Transverse Uterine Closure: Double-layer closure BABY A INFORMATION Infant Delivery Date/Time: 07/12/2017 08:17 Method of Delivery: Born in Route : No : N/A SHOULDER DYSTOCIA BABY A Delivery Date/Time: 07/12/2017 08:17 PLACENTA INFORMATION BABY A Placenta Delivery Time : 07/12/2017 08:17 Placenta Method of Delivery: Manual Removal Placenta Status: Delivered SCORES BABY A Heart Rate 1 min: >100 bpm Resp Effort 1 min: Good Cry Reflex Irritability 1 min: Cough or Sneeze or Pulls Away Muscle Tone 1 min: Active Motion Color 1 min: Blue/Pale Resuscitation Effort 1 min: Tactile Stimulation SCORE 1 MIN: 8 Heart Rate 5 min: >100 bpm Resp Effort 5 min: Good Cry Reflex Irritability 5 min: Cough or Sneeze or Pulls Away Muscle Tone 5 min: Active Motion Color 5 min: Body [place], Extremities Blue SCORE 5 MIN: 9 INFORMATION BABY A Gestational Age at Delivery: 34.2 Gestational Status: Outcome : Liveborn Infant Condition : Stable Infant Sex: Male IDENTIFICATION/MEDS BABY A ID Band Number: [id number] ID Band Location: Left Leg; Left Arm Vitamin K Given : Not Given Erythromycin Given: Not Given WEIGHT/LENGTH BABY A Infant Birthweight (gms): 1830 Infant Weight (lb): 4 Infant Weight (oz): 1 CORD INFORMATION BABY A No. Cord Vessels: 3 Nuchal Cord : N/A Cord Blood Taken: Yes Suction: Mouth; Nose ASSESSMENT BABY A Complications: None Physical Findings at Delivery: Within Normal Limits Infant Respirations: Appears Normal Cyber Systems Administrator/ALS Called : Yes Care By: dr. reyna Transferred To: NICU
[2017-07-12] MEDS: Oxycodone/Acetaminophen 5/325 mg Tab PO PRN ×2 (12:50→20:00)
[2017-07-12] MEDS ORDERED: DiphenhydrAMINE 50 mg/ml Inj IVP PRN (13:33)
[2017-07-12] MEDS ORDERED: Oxycodone/Acetaminophen 5/325 mg Tab PO PRN (13:33)
[2017-07-12] MEDS: Simethicone 80 mg Chewtab PO SCH ×2 (17:04→21:11)
--- NOTE | 2017-07-12 19:52 | OP ---
PROCEDURE DATE: 07/12/2017 PREOPERATIVE DIAGNOSIS: Severe preeclampsia, remote from delivery. POSTOPERATIVE DIAGNOSIS: Severe preeclampsia, remote from delivery. OPERATION PERFORMED: Primary low-flap transverse section via Pfannenstiel incision. OPERATIVE FINDINGS: Viable male with Apgars of 8 and 9 at 1 and 5 minutes respectively, infant weight of 4 pounds 1 ounce, normal uterus, normal tubes and ovaries bilaterally. SURGEON: Pepito Nieves MD SPANISH LECTURER: Alicia Hansen MD. Dr. Hansen was present from the beginning of the procedure to the end of procedure. Dr. Hansen was integral in exposing the surgical field, controlling intraoperative bleeding, and manual delivery of the . TYPE OF ANESTHESIA: Spinal. ANESTHESIA ADMINISTERED BY: Milton Lindsey MD. ESTIMATED BLOOD LOSS: 800 mL. FLUIDS: 1200 mL of Lactated Ringer's. URINE OUTPUT: 200 mL clear urine at the end of procedure. DESCRIPTION OF PROCEDURE: Patient was taken to the operating room where spinal anesthesia was found to be adequate. Patient was prepped and draped in normal sterile fashion in the dorsal supine position with a leftward tilt. A Pfannenstiel skin incision was made with a scalpel. This was carried down through to the underlying layer of fascia with scalpel. Midline defect was made in the fascial layer with scalpel. The fascial incision was then extended bilaterally with curved Garcia scissors. The fascial layer was from the underlying rectus muscles both bluntly and sharply with curved Garcia scissors. The rectus muscles were at the midline. The peritoneum was then identified, tented up with Joslyn clamps x2, entered sharply with Metzenbaum scissors. This peritoneal incision was then extended superiorly and inferiorly with good visualization of the urinary bladder. Bladder blade was inserted into the abdomen. The vesicouterine peritoneum was then identified, tented up with Joslyn clamps x2, entered sharply with Metzenbaum scissors. This peritoneal incision was then extended bilaterally with Metzenbaum scissors. The bladder flap was created digitally. The Merced retractors were placed over the urinary bladder. The uterus was incised with a scalpel. The uterine incision was extended bilaterally bluntly. The infant's head was delivered atraumatically. Nose and mouth were suctioned with bulb suction. The remainder of the infant was delivered without complication. The cord was clamped and cut. The infant was handed off to waiting pediatricians. Cord gases were collected. Cord blood was collected. The placenta was removed manually. The uterus was cleared of all clots and debris. The uterine incision was repaired with 0-Vicryl in a running, locked fashion. Second layer of the same suture was used to imbricate the first and to obtain excellent hemostasis. Reinspection of the uterine incision proved excellent hemostasis. The abdomen and pelvis were irrigated with copious amounts of warm normal saline. Reinspection of the uterine incision proved excellent hemostasis. All instruments were removed from the patient. The peritoneal layer was closed with a running stitch of 2-0 chromic. The rectus muscles were reapproximated in the midline with a running stitch of 2-0 chromic. The fascial layer was closed with a running stitch of 0 Vicryl. Subcutaneous tissue was closed with a running stitch of 3-0 plain. The skin was closed with a subcutaneous stitch of 3-0 Vicryl. The patient tolerated the procedure well. All sponge, lap count, and needle counts were correct x2. The patient was given 1 g of Ancef just prior to the beginning of the procedure. There were no complications. The patient was taken to recovery room in awake and stable condition. Pepito Nieves MD
[2017-07-12] MEDS ORDERED: Oxycodone/Acetaminophen 5/325 mg Tab ONE (19:55)
[2017-07-13] MEDS ORDERED: Oxycodone/Acetaminophen 5/325 mg Tab ONE (01:56)
[2017-07-13] MEDS: Oxycodone/Acetaminophen 5/325 mg Tab PO PRN ×4 (01:58→22:38)
[2017-07-13] MEDS ORDERED: Magnesium Sul 40GM/1L SW 40 GM/1,000 ML ML IV ONE (03:17)
[2017-07-13] MEDS: Simethicone 80 mg Chewtab PO SCH ×3 (04:06→18:18)
[2017-07-13 06:28] LABS: HEMATOCRIT 24.1 % (34.0-47.0); MEAN CORPUSCULAR HEMOGLOBIN 29.8 pg (27.0-31.0); MEAN CORPUSCULAR HGB CONC 33.5 g/dL (33.0-37.0)
--- NOTE | 2017-07-13 07:28 | OBPPN ---
Datetime: 07/13/2017 07:22 PP Pain Prov: Within normal limits PP Nausea Prov: Denies PP Flatus Prov: Yes PP Breasts Prov: Not Done PP Heart Prov: Normal PP Lungs Prov: Normal PP Abdomen/Uterus Prov: Normal PP Lochia Prov: Not Done PP Vulva/Perineum Prov: Not Done PP CVA Tenderness Prov: Normal PP Extremities Prov: Normal PP C/S Incision Prov: Normal PP Impression Prov: Normal progression PP Progress Note Prov: Patient doing well pain well controlled patient denies nausea vomiting report s minimal lochia Vital signs stable afebrile Uterus firm below the umbilicus Incision clean dry and intact Extremities no Homans Postoperative day #1 Discontinue magnesium sulfate, Magallanes catheter Encourage ambulation, regular diet Continue labetalol Vital Signs Provider PP: Reviewed
[2017-07-13] MEDS ORDERED: Oxycodone/Acetaminophen 5/325 mg Tab PO PRN ×2 (13:15)
[2017-07-14] MEDS: Simethicone 80 mg Chewtab PO SCH ×5 (00:39→18:05)
[2017-07-14 14:27] LABS: GAMMA GLOBULIN 8.1 Relative %
[2017-07-15] MEDS: Simethicone 80 mg Chewtab PO SCH ×2 (00:58→06:46)
[2017-07-15] MEDS ORDERED: Measles, Mumps, and Rubella 0.5 ML VIAL SC ONE (08:00)
--- NOTE | 2017-07-15 11:02 | OBDCSUM ---
Datetime: 07/15/2017 11:00 Discharged to, Provider: Home Follow up at, Provider: Dilcia Selby Instr Activity: Normal activity Disch Instr Diet: Regular Discharge Instructions, Provider: Routine instructions given Discharge Diagnosis, Provider: Delivery Follow up in weeks, Provider: 1 week Disch Referrals: None Contraception discussed, Prov: Yes Disch Activity Restrictions: Nothing in vagina - Cricket, tampons, douche Discharge Comment, Provider: Patient to monitor blood pressure home prescriptions provided patient f ollow up in 1 week Contraception after Delivery: Undecided Datetime: 06/16/2017 13:33 Discharge Instructions, Provider: Routine instructions given Discharge Diagnosis, Provider: Term Delivered Follow up in weeks, Provider: 1 week Contraception discussed, Prov: Yes Disch Activity Restrictions: No exercising; No sexual activity Contraception after Delivery: Undecided
--- NOTE | 2017-07-15 11:02 | OBPPN ---
Datetime: 07/15/2017 10:54 PP Pain Prov: Within normal limits PP Nausea Prov: Denies PP Flatus Prov: Yes PP Breasts Prov: Not Done PP Heart Prov: Normal PP Lungs Prov: Normal PP Abdomen/Uterus Prov: Normal PP Lochia Prov: Not Done PP Vulva/Perineum Prov: Not Done PP CVA Tenderness Prov: Normal PP Extremities Prov: Normal PP C/S Incision Prov: Normal PP Progress Prov: Not Applicable PP Impression Prov: Normal progression PP Plan Prov: Discharge PP Progress Note Prov: Patient doing well ambulating tolerating diet reports minimal lochia. Pain we ll-controlled denies headache Vital signs stable afebrile Uterus firm below the umbilicus Incision clean dry and intact Extremities no Homans Postoperative day #3 Encourage ambulation, regular diet prescription for Percocet and Colace provided, prescription for labetalol Patient to monitor blood pressure at home and follow-up in one week Vital Signs Provider PP: Reviewed
[2017-07-15 18:17] VITALS: BP 147/92; PULSE 82; RESP 20; TEMP 97.8; O2SAT 95
== END 2017-07-15 12:25 | disposition home or self-care (01) | DRG 765 ==
LOC: H.EROB2 18:45 → H.EROB 18:45 → H.L&D 20:30 → H.EROB2 20:31 → H.OB/GYN 07-13 10:00
PROVIDERS: ADMIT Obstetrics & Gynecology; ATTEND Obstetrics & Gynecology
PROC: 4A1HXCZ Monitoring of Products of Conception, Cardiac Rate, External Approach (ICD-10-PCS; 2017-07-06)
PROC: 10D00Z1 Extraction of Products of Conception, Low, Open Approach (ICD-10-PCS; principal; 2017-07-12)
DX: O60.14X0 Preterm labor third trimester with preterm delivery third trimester, not applicable or unspecified (principal); O15.1 Eclampsia complicating labor; Z37.0 Single live birth; O14.14 Severe pre-eclampsia complicating childbirth; Z3A.34 34 weeks gestation of pregnancy; O36.5930 Maternal care for other known or suspected poor fetal growth, third trimester, not applicable or unspecified

== ENCOUNTER 2017-07-17 11:20 | Emergency (ER) | payer BC ==
[2017-07-17 11:22] VITALS: BMI 25.7
[2017-07-17 11:25] VITALS: TEMP 98.3
--- NOTE | 2017-07-17 11:47 | ED PDOC ---
HPI: Hypertension/Hypotension Time Seen by Provider: 07/17/17 11:30 Chief Complaint (Nursing): High Blood Pressure Chief Complaint (Provider): High Blood Pressure History Per: Patient History/Exam Limitations: no limitations Onset/Duration Of Symptoms: Days Current Symptoms Are (Timing): Still Present Quality Of Symptoms: Asymptomatic Additional Complaint(s): Jo Godinez is a 27 y/o female who presents to the ED for evaluation of high blood pressure. Blood pressure taken at home was 174/106. She is s/p on 07/12 and reports the was complicated by preeclampsia. Patient was discharged home on 07/15 with instruction to take Labetalol 200 mg TID (last dose 4AM). Also given prescription for Percocet but patient reports only taking Tylenol for pain near scar, last dose at 8:30AM. Denies any headache, blurred vision, dizziness, nausea, vomiting, diarrhea, weakness, numbness, tingling, cough, congestion or urinary discomfort. She is still having some vaginal bleeding. Patient reports a subjective fever and cold sweats last night , Tmax at home was 99. Her follow up appointment with Dr. Hansen is next . environmental health nurse: Alicia Hansen Past Medical History Reviewed: Historical Data, Nursing Documentation, Vital Signs Vital Signs: Last Vital Signs Temp 98.3 F 07/17/17 11:23 Pulse 97 H 07/17/17 11:23 Resp 22 07/17/17 11:23 BP 139/91 H 07/17/17 11:23 Pulse Ox 99 07/17/17 11:23 - Medical History PMH: Anemia, HTN (with ) - Surgical History Surgical History: (on 07/12) - Family History Family History: States: Unknown Family Hx - Home Medications Home Medications: Ambulatory Orders Medication Instructions Recorded Vit Calc,Iron,Folic 1 each PO DAILY 07/07/17 [ Vitamins] Labetalol [Trandate] 200 mg PO Q8H #90 tab 07/15/17 oxyCODONE/Acetaminophen [Percocet 1 tab PO DAILY PRN #30 tab 07/15/17 5/325 mg Tab] - Allergies Allergies/Adverse Reactions: Allergies Allergy/AdvReac Type Severity Reaction Status Date / Time No Known Allergies Allergy Verified 02/21/17 11:13 Review of Systems ROS Statement: Except As Marked, All Systems Reviewed And Found Negative Constitutional: Positive for: Sweats. Negative for: Fever ENT: Negative for: Nose Congestion, Throat Pain Cardiovascular: Negative for: Chest Pain, Palpitations Respiratory: Negative for: Cough, Shortness of Breath Gastrointestinal: Positive for: Other ( scar). Negative for: Nausea, Vomiting, Abdominal Pain, Diarrhea Genitourinary Female: Positive for: Vaginal Bleeding. Negative for: Dysuria, Frequency, Incontinence Neurological: Negative for: Weakness, Numbness, Headache, Dizziness Physical Exam - Reviewed Nursing Documentation Reviewed: Yes Vital Signs Reviewed: Yes - Physical Exam Appears: Positive for: Well, Non-toxic, No Acute Distress Head Exam: Positive for: ATRAUMATIC, NORMAL INSPECTION, NORMOCEPHALIC Skin: Positive for: Normal Color, Warm, Dry Eye Exam: Positive for: EOMI, Normal appearance, PERRL Neck: Positive for: Normal, Painless ROM, Supple Cardiovascular/Chest: Positive for: Regular Rate, Rhythm. Negative for: Murmur Respiratory: Positive for: Normal Breath Sounds. Negative for: Accessory Muscle Use, Respiratory Distress Pulses-Radial (L): 2+ Pulses-Radial (R): 2+ Gastrointestinal/Abdominal: Positive for: Soft, Tenderness (mild tenderness), Other (Healing scar with steri-strips in place. No fluctuance or discharge.) Back: Positive for: Normal Inspection. Negative for: L CVA Tenderness, R CVA Tenderness, Vertebral Tenderness Extremity: Positive for: Normal ROM. Negative for: Deformity Neurologic/Psych: Positive for: Alert, senior java j2ee developer II-XII, Oriented. Negative for: Motor/Sensory Deficits, Aphasia, Facial Droop - ECG O2 Sat by Pulse Oximetry: 99 (RA) Pulse Ox Interpretation: Normal - Progress ED Course And Treament: 1517: Stable. AAOx3. Spoke with Dr. Hopkins. Made aware of presentation, bp in ED, and findings. Wants pt. to fu with Dr. Hansen as scheduled. Pt. tolerated po. No symptoms currently. Medical Decision Making Medical Decision Making: Time: 11:46 Initial Plan: --Urine dipstick --Urinalysis --Paged Dr. Hansen Time: 12:20 --Pending call back from Dr. Hopkins, covering for Dr. Hansen. 1340: Spoke with pt. about feeling sad, depressed, suicidal or homicidal thoughts. Pt. denies all. States she does not want to speak with crisis at this time. 15:05. Received call back from Dr. Hopkins, who states that patient can be discharged and follow up with Dr. Hansen as scheduled. Scribe Attestation: Documented by Karoline Byers, acting as a scribe for Justen Shaffer MD Provider Scribe Attestation: All medical record entries made by the Scribe were at my direction and personally dictated by me. I have reviewed the chart and agree that the record accurately reflects my personal performance of the history, physical exam, medical decision making, and the department course for this patient. I have also personally directed, reviewed, and agree with the discharge instructions and disposition. Disposition - Clinical Impression Clinical Impression: Hypertension in , condition - Patient ED Disposition Is Patient to be Admitted: No Counseled Patient/Family Regarding: Studies Performed, Diagnosis, Need For Followup - Disposition Referrals: Alicia Hansen MD [Staff Provider] - 07/20/17 Disposition: Routine/Home Disposition Time: 15:18 Condition: STABLE Additional Instructions: Return if not better in 3 days. Instructions: Hypertension (ED) Forms: [employer] (Eritrean)
[2017-07-17 12:50] LABS: RBC URINE 135 /hpf (0-3); RENAL EPITHELIAL < 1 /hpf (0-3); TRANSITIONAL EPITHIAL 2 /hpf (0-3); URINE BACTERIA RARE (<OCC); URINE BILIRUBIN NEGATIVE (NEGATIVE); URINE BLOOD MODERATE (NEGATIVE); URINE COLOR AMBER (YELLOW); URINE GLUCOSE (UA) NEG (Normal); URINE KETONE TRACE mg/dL (NEGATIVE); URINE LEUKOCYTE ESTERASE NEG Leu/uL (Negative); URINE PROTEIN >=500 mg/dL (NEGATIVE); URINE UROBILINOGEN 0.2-1.0 mg/dL (0.2-1.0); WBC URINE 17 /hpf (0-5)
[2017-07-17 14:55] VITALS: BP 140/97; PULSE 81; RESP 18
[2017-07-17 15:10] VITALS: O2SAT 99
== END 2017-07-17 15:33 | disposition home or self-care (01) ==
LOC: H.ER 11:20
DX: I10 Essential (primary) hypertension (principal)

== ENCOUNTER 2019-01-26 07:12 | Inpatient (IN) | payer BC ==
[2019-01-26 07:24] VITALS: BMI 25.3
[2019-01-26] MEDS: Lactated Ringer's 1,000 ML IV ONE ×2 (07:30→08:30)
[2019-01-26] MEDS ORDERED: ceFAZolin 2 GM in Sodium Chloride 0.9% 100 ML IVPB ONE (07:44)
[2019-01-26] MEDS ORDERED: Oxytocin 30 UNIT in NS 500 ml 30 UNITS/500 ML BAG IV ONE (07:49)
[2019-01-26] MEDS ORDERED: OXYTOCIN/0.9 % NS 20 UNIT/1,000 ML BAG IV SCH (08:00)
[2019-01-26 08:37] LABS: BASO % 0.3 % (0.0-2.0); EOS % 0.5 % (0.0-4.0); HEMOGLOBIN 9.4 g/dL (12.0-16.0); LYMPH # 1.9 K/uL (1.0-4.3); LYMPH % 21.1 % (20.0-40.0); MEAN CELL VOLUME 71.4 fl (81.0-99.0); MEAN CORPUSCULAR HEMOGLOBIN 22.5 pg (27.0-31.0); MEAN CORPUSCULAR HGB CONC 31.5 g/dL (33.0-37.0); MEAN PLATELET VOLUME 7.8 fl (7.2-11.7); MONO # 0.5 K/uL (0.0-0.8); MONO % 5.2 % (0.0-10.0); NEUT # 6.5 K/uL (1.8-7.0); NEUT % 72.9 % (50.0-75.0); NRBC % 0.1 % (0.0-0.0); RBC 4.17 Mil/uL (3.80-5.20); RED CELL DISTRIBUTION WIDTH 18.2 % (11.5-14.5); WHITE BLOOD COUNT 8.9 K/uL (4.8-10.8)
--- NOTE | 2019-01-26 08:58 | OBHP ---
Datetime: 01/26/2019 07:51 IP Adm Impression: Term, intrauterine IP Admit Plan: Admit to unit Admit Comment, IP Provider: 28 y/o , 39.2 wks based on LMP with ANGELA of 01/31/19 presents to LND for repeat scheduled C section. Denies LOF, vaginal bleeding, abdominal pain, nuasea, vomiting, head ache or vision changes. Patient was seen in Dr. Hansen's office on 01/20/19 and had US done yesterd ay which was unremarkable per patient. Endorses good movements. Denies fever, chills, CP or SOB . Hx: Dr. Hansen. Hx of preeclapsia with CS at 34 weeks in prior . No complicat ions so far in this . OBHx: CS at 34 weeks PMHx: Denies PSHx: CS Allergies: NKDA Meds: PNVs, Ferrous sulfate SocialHx: Denies ETOH, smoking, drug use in current F/H: HTN in mother PE: GEN: NAD Chest: RRR, S1S2 present Lungs: CTAB Abdomen: Gravid, NT, soft Ext: No edema, no calf tenderness A/P: 28 y/o , 39.2 wks based on LMP with ANGELA of 01/31/19 presents to LND for repeat scheduled C section. - Admite for repeat C section - CBC, T_S - ANcef 2g - LR - Anesthesia consult Case discussed with the ob attending Dr. Tyrone Li MD, PGY1 Patient was seen with the resident I agree with the note Pelvic Type - PN: Adequate Extremities - PN: Normal Abdomen - PN: Normal Back - PN: Normal Breast - PN: Not Done Lungs - PN: Normal Heart - PN: Normal Thyroid - PN: Not Done Neurologic - PN: Normal HEENT - PN: Normal General - PN: Normal FHR - Baseline A Provider: 140 Comments, ACOG Physical Exam: PE: GEN: NAD Chest: RRR, S1S2 present Lungs: CTAB Abdomen: Gravid, NT, soft Ext: No edema, no calf tenderness IP Hx Assessment: The History has been Reviewed and is Current Vital Signs Provider: Reviewed; Within Normal Limits IP Indication for Induction Oth: Repeat C section IP Chief Complaint: Scheduled Section NICHD Variability Prov Fetus A: Moderate 6-25bpm NICHD Accel Fetus A IP Provider: [id number] FHR Category Provider Fetus A: Category I NICHD Decel Fetus A IP Provider: None Genitourinary Exam: Not Done DTRs - PN: Normal
--- NOTE | 2019-01-26 08:58 | OBDS ---
MATERNAL INFORMATION Provider Comments: See operative report LABOR SUMMARY No. Babies in Womb: 1 LABOR INFORMATION Group B Beta Strep: Negative
[2019-01-26] MEDS ORDERED: Morphine 5 mg/10 ml preservative-free Inj(Duramorph) ONE (09:15)
[2019-01-26] MEDS ORDERED: Triamcinolone Acetonide 40 mg/mL Inj IAA ONE (09:32)
[2019-01-26] MEDS ORDERED: Triamcinolone Acetonide 40 mg/mL Inj ONE (09:33)
[2019-01-26] MEDS ORDERED: Oxycodone/Acetaminophen 5/325 mg Tab PO PRN ×4 (10:33→14:16)
[2019-01-26 11:37] VITALS: RESP 18
[2019-01-26] MEDS: Lactated Ringer's 1,000 ML IV SCH (18:03)
[2019-01-27] MEDS: Lactated Ringer's 1,000 ML IV SCH (02:41)
[2019-01-27 06:39] LABS: HEMOGLOBIN 8.8 g/dL (12.0-16.0); MEAN CORPUSCULAR HEMOGLOBIN 22.4 pg (27.0-31.0); MEAN CORPUSCULAR HGB CONC 31.6 g/dL (33.0-37.0); RBC 3.92 Mil/uL (3.80-5.20)
--- NOTE | 2019-01-27 08:22 | OP ---
PROCEDURE DATE: 01/26/19 PREOPERATIVE DIAGNOSES: Intrauterine at 39 weeks, history of previous delivery, declined trial of labor. POSTOPERATIVE DIAGNOSES: Intrauterine at 39 weeks, history of previous delivery, declined trial of labor. OPERATION PERFORMED: Repeat low-flap transverse section via a Pfannenstiel skin incision. SURGEON: Alicia Hansen MD CASHIERS BUSSERS FOOD RUNNERS: Dr. Antonette Lim. She was helpful in creating exposure, obtaining hemostasis, delivering the baby and closure of the patient. The procedure would not have been possible without her assistance. ESTIMATED BLOOD LOSS: 800 mL. URINE OUTPUT: Magallanes catheter put out approximately 150 mL of clear urine. INTRAVENOUS FLUID INTAKE: The patient received 1400 mL of D5 LR intraoperatively. OPERATIVE FINDINGS: Baby Boy, vertex presentation, weighing 3170 g. Normal uterus, tubes, and ovaries were identified. Apgars 9 and 9. Male infant. DESCRIPTION OF PROCEDURE: After informed consent was obtained, the patient was taken to the operating room where she was given spinal anesthesia. She was then prepped and draped in a normal sterile fashion with a leftward tilt. A Pfannenstiel skin incision was then made with a scalpel and carried down to the underlying layer of fascia. The fascia was nicked in the midline. The fascial incision was then extended laterally with a curved Garcia scissors. Superior aspect of the fascial incision was then grasped with Negro clamps, elevated up, and the rectus muscles were dissected off using both sharp and blunt dissection. Attention was then turned to the inferior aspect of the fascial incision, which in a similar fashion was grasped with Negro clamps, elevated up, and dissected off using both sharp and blunt dissection. The rectus muscles were in the midline. The peritoneum identified and entered sharply with the Metzenbaum scissors. The peritoneal incision was then extended superiorly and inferiorly with good visualization of the bladder. The bladder blade was then inserted. The vesicouterine peritoneum was identified and entered sharply with the Metzenbaum scissors. The incision was then extended laterally. The bladder flap was created digitally. The bladder blade was then re-adjusted. A low-transverse incision was made with the scalpel. The incision was then extended laterally with the bandage scissors. The 's head was then delivered atraumatically. The nose and mouth were suctioned with the DeLee suction trap. The cord was clamped and cut. The infant was handed off to the awaiting pediatricians. The placenta was then removed manually. The uterus was exteriorized and cleared of all clots and debris. The uterine incision was repaired with 0 Vicryl in a running locked fashion. The second layer of the same suture was used to obtain excellent hemostasis. The uterus was returned to the abdomen. The gutters were cleared of all clots and debris. The uterine incision was examined and noted to be hemostatic. The peritoneum was then closed with a 2-0 Vicryl in a running fashion. The muscle was reapproximated with 0 Vicryl in an interrupted fashion. The fascia was closed with 0 Vicryl in a running fashion. The skin was closed with 4-0 on a Ean needle. All sponge, lap, needle, and instrument counts were correct x2. The patient was taken to the recovery room in awake and stable condition. Alicia Hansen MD
[2019-01-27] MEDS ORDERED: Multivitamin With Minerals Tab PO SCH (09:00)
[2019-01-27] MEDS: Multivitamin With Minerals Tab PO SCH (09:04)
--- NOTE | 2019-01-27 11:45 | OBPPN ---
Datetime: 01/27/2019 11:35 PP Pain Prov: Within normal limits PP Nausea Prov: Denies PP Flatus Prov: Yes PP Breasts Prov: Normal PP Heart Prov: Normal PP Lungs Prov: Normal PP Abdomen/Uterus Prov: Normal PP Lochia Prov: Normal PP Vulva/Perineum Prov: Normal PP CVA Tenderness Prov: Normal PP Extremities Prov: Normal PP Comments Phys Exam Prov: Fundus firm under umbilicus PP Impression Prov: Normal progression PP Plan Prov: Continue present management PP Progress Note Prov: Patient denies Cp, no SOB, no N/V, tolerating PO diet, ambulating/voiding wel l, mild lochia, abdominal pain tolerable with meds, +flatus A/P POD #1 1. Continue postop orders 2. Encourage ambulation and 3. Percocet/Motrin prn pain IP PP Procedures: None Vital Signs Provider PP: Reviewed; Within Normal Limits
[2019-01-28] MEDS: Multivitamin With Minerals Tab PO SCH (08:25)
[2019-01-28] MEDS ORDERED: Measles, Mumps, and Rubella 0.5 ML VIAL SC ONE (10:04)
--- NOTE | 2019-01-28 10:11 | OBDCSUM ---
Datetime: 01/28/2019 10:07 Discharged to, Provider: Home Follow up at, Provider: [place] 1-2w Disch Instr Activity: Normal activity Disch Instr Diet: Regular Discharge Instructions, Provider: Routine instructions given Discharge Diagnosis, Provider: Term Delivered Follow up in weeks, Provider: 1-2w Disch Referrals: None Contraception discussed, Prov: Yes Disch Activity Restrictions: No lifting; No sexual activity; Nothing in vagina - [place], tampon s, douche
--- NOTE | 2019-01-28 10:12 | OBPPN ---
Datetime: 01/28/2019 10:06 PP Pain Prov: Within normal limits PP Nausea Prov: Denies PP Flatus Prov: Yes PP BM Prov: Yes PP Breasts Prov: Normal PP Heart Prov: Normal PP Lungs Prov: Normal PP Abdomen/Uterus Prov: Normal PP Lochia Prov: Normal PP Vulva/Perineum Prov: Not Done PP CVA Tenderness Prov: Normal PP Extremities Prov: Normal PP C/S Incision Prov: Normal PP Progress Prov: Normal PP Impression Prov: Normal progression PP Progress Note Prov: Pt wants to go home A: S/P C/S day 2 Anemia asymptomatic PLAN: dischage home and follow up in 1-2w [place] [facility] Vital Signs Provider PP: Reviewed; Within Normal Limits
[2019-01-28 20:27] VITALS: BP 123/69; PULSE 73; TEMP 98.4; O2SAT 99
== END 2019-01-28 15:00 | disposition home or self-care (01) | DRG 788 ==
LOC: H.L&D 07:48 → H.OB/GYN 12:39
PROVIDERS: ADMIT Obstetrics & Gynecology Gynecology; ATTEND Obstetrics & Gynecology Gynecology
PROC: 10D00Z1 Extraction of Products of Conception, Low, Open Approach (ICD-10-PCS; principal; 2019-01-26)
PROC: 4A1HXCZ Monitoring of Products of Conception, Cardiac Rate, External Approach (ICD-10-PCS; 2019-01-26)
PROC: 10E0XZZ Delivery of Products of Conception, External Approach (ICD-10-PCS; 2019-01-26)
DX: O34.211 Maternal care for low transverse scar from previous cesarean delivery (principal); N85.8 Other specified noninflammatory disorders of uterus; Z3A.39 39 weeks gestation of pregnancy; Z37.0 Single live birth